=== PATIENT | female | born 1945 | race Caucasian/White ===

== ENCOUNTER 2022-04-28 13:19 | Outpatient (RCR) | payer MEDICARE, SELFPAY ==
--- NOTE | 2022-04-26 11:30 | RT.EKG_ITS ---
APPROVED REPORT Exam: Resting ECG Reason for Exam: Cardiac Rehab Baseline Patient Location: O HR:66 bpm ECG Measurements Heart Rate 66 AXIS IL 166 P 70 QRSd 109 QRS -26 QT 407 T 126 QTc 427 Conclusion Sinus rhythm...normal P axis, V-rate 50- 99 Borderline left axis deviation...QRS axis (-15,-29) Low voltage, precordial leads...precordial leads <1.0mV Nonspecific T abnrm, anterolateral leads...T <-0.10mV, I aVL V2-V6
== END 2022-05-01 23:59 | disposition home or self-care (01) ==
LOC: CR 13:19
PROVIDERS: Visit Provider Internal Medicine Cardiovascular Disease
DX: Z51.89 Encounter for other specified aftercare (principal); I25.2 Old myocardial infarction; Z95.1 Presence of aortocoronary bypass graft
CPT/HCPCS: S9472